=== PATIENT | male | born 1980 | race Caucasian/White ===

== ENCOUNTER 2025-05-22 11:45 | Emergency (ER) | payer OTHER, SELFPAY ==
[2025-05-22 11:46] VITALS: BP 139/73
--- NOTE | 2025-05-22 13:10 | ED.GENMED ---
History of Present Illness
<Stephanie Durbin PA-C - Last Filed: 05/22/25 23:57>
General
Chief Complaint: Headache
Source: patient
Exam Limitations: none
Time Seen by Provider: 05/22/25 12:29
Nursing documentation reviewed up to this point in time: agreed with
History of Present Illness
History of Present Illness:
Patient is a 45-year-old male who presents to the emergency department for evaluation of headache for the past 3 months. Patient states that starting in the middle of February he developed daily headaches. He describes them a throbbing pressure
sometimes localized behind his left eye however occasionally throughout his entire head. These headaches have occurred every day since onset. Occasionally he has them when he wakes up and occasionally develop throughout the day. Patient treats
symptoms with Tylenol and/or Motrin however only notices minimal improvement.
This morning, patient headache woke him from sleep and then he had an episode of vomiting. Pain is worse when he leans forward.
Patient denies any fever or chills. No headache or neck pain. No dizziness, ataxia, or dysarthria. No changes in vision. He has no known bug bite or rashes.
He was seen by his primary care provider who referred him for a neurology evaluation outpatient however he was unable to get an appointment until September.
Patient has no past history of headaches.
Past History
<Stephanie Durbin PA-C - Last Filed: 05/22/25 23:57>
Past History
ED Past Medical History: None
ED Past Surgical History: None
Review of Systems
<Stephanie Durbin PA-C - Last Filed: 05/22/25 23:57>
Review of Systems
Allergies reviewed?: Yes
All Other Systems: ROS reviewed and negative except as documented in HPI and ROS
Phy Exam
<Stephanie Durbin PA-C - Last Filed: 05/22/25 23:57>
Physical Exam
Physical Exam:
Vitals: Mildly hypertensive, otherwise vital signs stable. Afebrile
General: Patient appears in no distress.
Skin: Warm and dry, no rashes or lesions
Head: Normocephalic, atraumatic. No tenderness overlying temporal arteries bilaterally
Eyes: Sclera nonicteric. Pupils equal round and reactive to light bilaterally. EOMs intact. No nystagmus.
Throat: Protecting airway
Neck: Normal ROM, no cervical spine tenderness, no meningismus
Cardiac: Regular rate and rhythm, no murmurs.
Pulm: Normal respiratory effort, no wheezes, rales, rhonchi heard on exam
.
Abdomen: No abdominal tenderness.
Extremities: No evidence of cyanosis or edema. Strength 5/5 in bilateral upper and lower extremities.
Neuro: AAOx3. CN II-XII grossly intact. No facial droop or asymmetry. Fluid speech. Normal [id number]. No focal neurologic deficits.
Psychiatric: Normal affect.
Course
<Stephanie Durbin PA-C - Last Filed: 05/22/25 23:57>
Orders/Labs/Results
Orders:
Orders
05/22/25 13:09
CT Head W/o Iv Contrast Urgent
Comment:
Reason For Exam: Headache
0.9% Sodium Chloride 1000 ml [Nss] 1,000 ml IV BOLUS
Ketorolac [Toradol] 15 mg IV NOW STA
05/22/25 13:26
COVID-19 Antigen Urgent
Source: Nasal Swab
Complete Blood Count/With Diff Urgent
Comprehensive Metabolic Panel Urgent
Lyme Progressive Urgent
Influenza A+B Rapid Molecular Urgent
SAMPSON Source: Nasal Swab
Specimen Description:
Abnormal Lab Results
05/22/25
13:26
Neutrophils % 75.8 H %
(42.2-75.2)
Lymphocytes % 15.5 L %
(20.5-51.1)
Glucose 114 H mg/dl
(70-99)
AST 15 L U/L
(17-59)
05/22/25 13:26
05/22/25 13:26
Vital Signs
Initial and Last Documented VS:
Initial Vital Signs
Temp Pulse Resp BP Pulse Ox
97.9 F 74 18 139/73 97
05/22/25 11:46 05/22/25 11:46 05/22/25 11:46 05/22/25 11:46 05/22/25 11:46
Last Documented Vital Signs
Temp Pulse Resp BP Pulse Ox
97.9 F 74 18 139/73 97
05/22/25 11:46 05/22/25 11:46 05/22/25 11:46 05/22/25 11:46 05/22/25 13:11
<Michael Leonard MD - Last Filed: 05/22/25 15:50>
Orders/Labs/Results
Orders:
Orders
05/22/25 13:09
CT Head W/o Iv Contrast Urgent
Comment:
Reason For Exam: Headache
0.9% Sodium Chloride 1000 ml [Nss] 1,000 ml IV BOLUS
Ketorolac [Toradol] 15 mg IV NOW STA
05/22/25 13:26
COVID-19 Antigen Urgent
Source: Nasal Swab
Complete Blood Count/With Diff Urgent
Comprehensive Metabolic Panel Urgent
Lyme Progressive Urgent
Influenza A+B Rapid Molecular Urgent
SAMPSON Source: Nasal Swab
Specimen Description:
Abnormal Lab Results
05/22/25
13:26
Neutrophils % 75.8 H %
(42.2-75.2)
Lymphocytes % 15.5 L %
(20.5-51.1)
Glucose 114 H mg/dl
(70-99)
AST 15 L U/L
(17-59)
05/22/25 13:26
05/22/25 13:26
Vital Signs
Initial and Last Documented VS:
Initial Vital Signs
Temp Pulse Resp BP Pulse Ox
97.9 F 74 18 139/73 97
05/22/25 11:46 05/22/25 11:46 05/22/25 11:46 05/22/25 11:46 05/22/25 11:46
Last Documented Vital Signs
Temp Pulse Resp BP Pulse Ox
97.9 F 74 18 139/73 97
05/22/25 11:46 05/22/25 11:46 05/22/25 11:46 05/22/25 11:46 05/22/25 13:11
<Stephanie Durbin PA-C - Last Filed: 05/22/25 23:57>
MDM/Problems Addressed
Differential Diagnosis Includes:
Not limited to: Migraine headache, tension headache, cluster headache, intracranial mass, viral illness, tickborne illness, etc.
MDM/Problems Addressed:
45-year-old male with daily headaches X3 months. Had episode of vomiting this morning. No other infectious/viral symptoms. No other neurological symptoms. No prior history of headaches. Seen by PCP and referred for outpatient neurology appointment
however was unable to schedule for a few months.
Vitals stable. On exam, patient in no distress. Cardio/pulmonary assessment unremarkable. He is neurologically intact without any focal deficits. Normal cerebellar exam. No temporal artery tenderness.
Differential as above. Given duration of symptoms without any history of similar � will obtain CT head. Will check basic labs and viral studies. Will treat with IV fluids and reassess.
Update: I was contacted by a radiologist. 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 His lab work is otherwise unremarkable.
I did discuss with patient and at length including unable to determine if benign versus malignant as well as need for further management and MRI.
Case discussed with neurosurgery at [facility], Dr. Webb who reviewed images. We are unable to obtain MRI tonight at [facility]. Patient was offered transfer to [facility] for expedition of process, MRI for better characterization of
mass, and neurosurgical evaluation.
However, patient much prefers discharge home with outpatient follow up. He�s aware that it is unclear how soon he will be able to obtain MRI imaging and neurosurgeon f/u. Doctor Jon feels this is and appropriate option if pt does not wish to
stay..
Per neurosurgery � no indication for steroids or seizure prophylaxis. Patient will be discharged home with extremely strict return precautions as well as plans for outpatient neurosurgical evaluation for further management. Patient expressed verbal
understanding.
Chronic conditions affecting care:
N/A
Acute Exacerbation and/or Progression of Chronic Illness:
N/A
<Stephanie Durbin PA-C - Last Filed: 05/22/25 23:57>
*Radiology
Radiology exam reviewed: radiology read reviewed
*Pulse Oximetry
SaO2: 97
Oxygen Mode of Delivery: Room air
Patient hypoxic: no
*EKG
Interpreted by ED Provider?: NA
*Operations Recruiter Interpretation
Rate: Operations Recruiter- N/A
*Critical Care Note
Total Time (30-74mins, 75-104mins- exclusive of procedures): Not Applicable
<Stephanie Durbin PA-C - Last Filed: 05/22/25 23:57>
Patient Management
Discussion with other providers: Merchandising Execution Manager (Case discussed with neurosurgery) and Radiologist
ED Attending Note
<Stephanie Durbin PA-C - Last Filed: 05/22/25 23:57>
-
Portions of this chart may have been created with voice recognition software.� Occasional wrong word or��sound alike� substitutions may have occurred due to the inherent limitations of voice recognition software.
<Michael Leonard MD - Last Filed: 05/22/25 15:50>
ED Attending Note
Patient seen and examined by attending physician: Yes
ED Attending Note:
I have seen and evaluated the patient with a [id number] encounter. I have spoken to the advance practicer provider and involved in the medical history, the physical exam, medical decision making.
Evaluation and management service: agree unless noted differently below.
Results interpretation: agree unless noted differently below.
Focused HPI: 45-year-old male with no significant chronic medical issues presents for evaluation of headaches. Patient reports symptoms have been ongoing for the past few months but over the past 5 days he feels significantly worse. He reports
pain behind the left eye occasionally radiates diffusely. He says it is worse when he bends over or bears down. No relieving factors noted. Over the past day or 2 associate with nausea. Denies any neck pain or stiffness. No fever or chills. No
trauma reported. No history of similar. He did see his primary doctor recently for it and was referred to a neurologist but appointment is not until September.
Physical exam: Awake and alert not in distress. Vital signs normal. Cranial nerves are intact. Motor and sensory intact in the extremities.
Medical Decision Makin-year-old male presents with persistent headache now associated with nausea and vomiting. Vitals and exam as above. Labs are unremarkable but CT head unfortunately shows left frontal mass. PA discussed with
neurosurgeon�will need nonemergent MRI. Offered transfer to [facility] to expedite workup but patient prefers to pursue workup on an outpatient basis. Neurosurgery will follow-up with him.
Discharge Plan
Departure
Patient Disposition: Home (Routine Discharge)
Date of Disposition: 05/22/25
Time of Disposition: 17:26
Patient with high blood pressure during this ER visit?: Yes
Discharge Problem:
Left frontal lobe mass
Instructions: BLOOD PRESSURE
Prescriptions:
New
ondansetron 4 mg tablet,disintegrating
4 mg PO Q8H PRN (Reason: nausea and vomiting) Qty: 10 0RF
Referrals:
Sudley,Florentin H., DO [Family Provider, Family Practice]
Helga Tsang MD [Active, Neurosurgery] - Next open appointment
Activity Restrictions/Additional Instructions:
RETURN TO THE EMERGENCY DEPARTMENT WITH ANY SEVERE HEADACHE, INTRACTABLE VOMITING, CHANGES IN MENTAL STATUS, CHANGES IN VISION, DIFFICULTIES AMBULATING, ANY NEW NEUROLOGIC SYMPTOMS OR ANY OTHER CONCERNS
- As discussed your head CT showed a mass in the left frontal lobe. This will require close outpatient follow-up with neurosurgery. You should be receiving a call from their office to set you up with appropriate appointments. You will require MRI
imaging for further characterization of this mass.
- You can take Tylenol and/or Motrin as needed for headaches. A prescription for Zofran has been sent to your pharmacy to help with nausea. Please stay well-hydrated.
- Follow-up with neurosurgery for further evaluation and management.
Monitor your symptoms closely and return to the emergency department with any acute worsening/new symptoms or any other concerns
Interventions
Interventions:
*Risk Screen - Suicide Last Done: 05/22/25 11:46
*General Assessment Last Done: 05/22/25 11:46
*Neglect/Abuse Screening Last Done: 05/22/25 17:29
*ED- Fall Risk Assessment Last Done: 05/22/25 17:29
*ED COVID-19 Vaccine History Last Done: 05/22/25 16:25
*ED Influenza Vaccine History Last Done: 05/22/25 16:25
*Nursing Disposition Last Done: 05/22/25 17:29
ED- Neurological Assessment Last Done: 05/22/25 13:31
Discharge Date and Time
Discharge Date/Time: 05/22/25 17:29
Print Language: OCCITAN
[2025-05-22] MEDS: TORADOL 15 MG IV (13:24)
[2025-05-22] MEDS: NSS 1000 IV (13:25)
[2025-05-22 13:36] LABS: Hematocrit 40.7 % (39.0-52.0); Hemoglobin 13.6 g/dL (13.0-18.0); Mean Corp Hgb Conc. 33.4 g/dL (33.0-37.0); Mean Corpuscular Volume 85.9 fL (80.0-94.0); Nucleated Red Blood Cells % 0 % (-); Platelet Count 258 10^3/uL (130-400); Red Cell Dist. Width 12.7 % (11.5-14.5)
[2025-05-22 14:03] LABS: ALT (SGPT) 15 U/L (0-50); AST (SGOT) 15 U/L (17-59); Albumin 4.4 g/dl (3.5-5.0); Alkaline Phosphatase 48 U/L (38-126); Blood Urea Nitrogen 10 mg/dl (9-20); Calcium 9.5 mg/dl (8.4-10.2); Carbon Dioxide 28 mmol/L (22-30); Chloride 103 mmol/L (98-107); Glucose 114 mg/dl (70-99); Potassium 4.3 mmol/L (3.5-5.1); Sodium 139 mmol/L (135-145); Total Protein 6.5 g/dl (6.3-8.2); eGFR > 60.00
[2025-05-22 14:08] LABS: COVID-19 Antigen Negative (Negative)
[2025-05-23 10:58] LABS: Lyme Antibody Screen, EIA Negative (Negative)
== END 2025-05-22 17:29 | disposition home or self-care (01) ==
LOC: EMR 11:45
PROVIDERS: Physician Assistant; EMERGENCY PHYSICIAN Emergency Medicine; FAMILY PHYSICIAN Family Medicine
DX: G93.89 Other specified disorders of brain (principal); R51.9 Headache, unspecified; R11.2 Nausea with vomiting, unspecified; Z11.52 Encounter for screening for COVID-19
CPT/HCPCS: 96374; 96361; 99284; 70450; 80053; 85025; 86618; 87502; 87811